=== PATIENT | male | born 1980 | race Caucasian/White ===

== ENCOUNTER → 2017-01-04 10:40 | Emergency (ER) | payer OTHER ==
[~2017-01-04 10:40] MED LIST: BACTRIM DS TABL1 TA1 PO; IBUPROFEN800 MG PO; KEFLEX500 MG PO; NO MEDICATIONS; ORUDIS75 M1 PO; VICODIN PO
== END | disposition home or self-care (01) ==
LOC: CED 10:40
DX: S46.212A Strain of muscle, fascia and tendon of other parts of biceps, left arm, initial encounter (principal); F17.200 Nicotine dependence, unspecified, uncomplicated; Z79.2 Long term (current) use of antibiotics; Z88.6 Allergy status to analgesic agent; X50.9XXA Other and unspecified overexertion or strenuous movements or postures, initial encounter
CPT/HCPCS: 99283